=== PATIENT | female | born 1985 | race Caucasian/White ===

== ENCOUNTER → 2018-05-04 | Outpatient (CLI) | payer OTHER ==
[2018-05-04 16:01] LABS: Basophils # (A) 0.1 k/uL (0-0.2); Basophils % (A) 1 %; Eosinophils # (A) 0.2 k/uL (0-0.7); Eosinophils % (A) 3 %; HCT 39.4 % (34.0-46.0); HGB 12.6 gm/dL (11.4-16.0); Lymphocytes % (A) 31 %; MCH 31.2 pg (25.0-35.0); MCV 97.3 fL (80.0-100.0); Mean Platelet Volume 8.2; Monocytes # (A) 0.4 k/uL (0-1.0); Monocytes % (A) 6 %; Neutrophils # (A) 3.8 k/uL (1.3-7.7); Neutrophils % (A) 58 %; Platelet Count 190 k/uL (150-450); RBC 4.05 m/uL (3.80-5.40); RDW 12.1 % (11.5-15.5); WBC 6.5 k/uL (3.8-10.6)
== END | disposition home or self-care (01) ==
LOC: LABPAT 14:54
PROVIDERS: ATTEND Obstetrics & Gynecology
DX: Z01.812 Encounter for preprocedural laboratory examination (principal)
CPT/HCPCS: 85025

== ENCOUNTER 2018-05-22 07:18 | Day surgery (SDC) | payer OTHER ==
[2018-05-18 08:35] VITALS: BMI 20.7
--- NOTE | 2018-05-21 18:55 | P.HPOB ---
History of Present Illness H&P Date: 05/21/18 Chief Complaint: Family planning This is a 32-year-old female 3 para 2 who presents for laparoscopic bilateral tubal ligation via fulguration for family planning. She would like to be off of her control pills due to migraine headaches. Obstetrical history: G 3 P2. History of 1 miscarriage and 2 vaginal deliveries. Gynecologic history: No history of sexual transmitted diseases. Social history: She is . She works full-time in daycare. Review of Systems Constitutional: Denies chills, Denies fever Eyes: denies blurred vision, denies pain Ears, nose, mouth and throat: Reports headache, Denies sore throat Cardiovascular: Denies chest pain, Denies shortness of breath Respiratory: Denies cough Gastrointestinal: Denies abdominal pain, Denies diarrhea, Denies nausea, Denies vomiting Genitourinary: Reports dysmenorrhea Menstruation: Reports cycle variable Musculoskeletal: Denies myalgias Integumentary: Reports as per HPI Neurological: Reports headaches Psychiatric: Reports irritability, Denies anxiety, Denies depression Endocrine: Denies fatigue, Denies weight change Past Medical History Additional Past Medical History / Comment(s): HX MIGRAINES, KIDNEY STONES History of Any Multi-Drug Resistant Organisms: None Reported Additional Past Surgical History / Comment(s): D&C 2008, ORAL BONE GRAFT WITH SEDATION Past Anesthesia/Blood Transfusion Reactions: No Reported Reaction Past Psychological History: Anxiety Smoking Status: Current some day smoker Past Alcohol Use History: Rare Additional Past Alcohol Use History / Comment(s): SMOKED FOR 2 YEARS AND NOW SMOKES SOCIALLY. Past Drug Use History: None Reported - Past Family History Mother Family Medical History: No Reported History Medications and Allergies Home Medications Medication Instructions Recorded Confirmed Type Aspirin/Acetaminophen/Caffeine 1 each PO DIRECTED PRN 05/18/18 05/18/18 History [Excedrin Migraine Caplet] Control Pill 1 tab PO DAILY 05/18/18 History Sertraline [Zoloft] 50 mg PO DAILY 05/18/18 05/18/18 History Allergies Allergy/AdvReac Type Severity Reaction Status Date / Time amoxicillin Allergy Unknown Body Aches Verified 05/18/18 08:26 - [place] like she had the "flu" nifedipine [From Procardia] Allergy Unknown Rash/Hives Verified 05/21/18 18:54 sulfamethoxazole Allergy Unknown Rash/Hives Verified 05/18/18 08:09 [From Bactrim] trimethoprim [From Bactrim] Allergy Unknown Rash/Hives Verified 05/18/18 08:09 Exam Osteopathic Statement: *. No significant issues noted on an osteopathic structural exam other than those noted in the History and Physical/Consult. HEENT: Within normal limits Heart: Regular rate and rhythm Lungs: Clear to auscultation bilaterally Abdomen: Soft, nontender Pelvic exam: Uterus is retroverted, nontender, with no adnexal masses or tenderness noted. Extremities: Negative Homans Assessment and Plan (1) Family planning Status: Acute Code(s): Z30.09 - ENCOUNTER FOR OTH GENERAL CNSL AND ADVICE ON CONTRACEPTION SNOMED Code(s): 721455328 Plan: Proceed with laparoscopic bilateral tubal ligation via fulguration. I have discussed the risks, benefits, and alternative therapies for the above- mentioned procedure and for both sedation/anesthesia as well as necessary blood products administration, if indicated, as they pertain to this patient. The patient has indicated her understanding and acceptance of the risks and procedures discussed.
[~2018-05-22 07:18] MED LIST: DEXAMETHASONE SOD PHOSPHATE 10 MG/ML 1 ML VIAL IV ONE; LACTATED RINGERS 1,000 ML IV SCH; LIDOCAINE 1% 20 ML VIAL (10MG/ML) FOR IV START INTRADERMA PRN; MIDAZOLAM 2 MG/2 ML VIAL IV PRN; Pre Op ABX Message 1 EACH MISC MISCELLANE ONE; fentaNYL (PF) 50 MCG/ML 2 ML AMP IV PRN
[2018-05-22] MEDS: ONDANSETRON 4 MG/2 ML VIAL IVP ONE ×2 (07:58→11:12)
[2018-05-22] MEDS ORDERED: GLYCOPYRROLATE 0.2 MG/ML 2 ML VIAL ONE (09:47)
[2018-05-22] MEDS ORDERED: ROCURONIUM BROMIDE 10 MG/ML 10 ML VIAL IV ONE (09:47)
[2018-05-22] MEDS ORDERED: fentaNYL (PF) 50 MCG/ML 2 ML AMP ONE (09:47)
[2018-05-22] MEDS ORDERED: MIDAZOLAM 2 MG/2 ML VIAL ONE (09:47)
[2018-05-22] MEDS ORDERED: SUCCINYLCHOLINE CHLORIDE 100 MG/5 ML SYR IV ONE (09:47)
[2018-05-22] MEDS ORDERED: NEOSTIGMINE 1 MG/ML 10 ML VIAL ONE (09:47)
[2018-05-22] MEDS ORDERED: PROPOFOL 10 MG/ML 20 ML VIAL IV ONE (09:47)
[2018-05-22] MEDS ORDERED: LIDOCAINE 1% INJ 10MG/ML (20 ML MDV) ONE (09:47)
[2018-05-22] MEDS ORDERED: KETOROLAC 30 MG/ML 1 ML VIAL ONE (09:47)
[2018-05-22] MEDS ORDERED: BUPIVACAINE (PF) 0.25% 30 ML VIAL SQ ONE ×2 (09:49→10:22)
[2018-05-22] MEDS ORDERED: LACTATED RINGERS 1,000 ML IV ONE ×2 (10:17)
--- NOTE | 2018-05-22 10:29 | P.OP ---
Date of Procedure: 05/22/18 Preoperative Diagnosis: Family planning Postoperative Diagnosis: Same Procedure(s) Performed: Laparoscopic bilateral tubal ligation via fulguration Anesthesia: LOBO Surgeon: Krysten Mansfield Estimated Blood Loss (ml): 25 Pathology: none sent Condition: stable Disposition: same day Indications for Procedure: This is a 32-year-old female 3 para 2 who presents for laparoscopic bilateral tubal ligation via fulguration for family planning. She would like to be off of her control pills due to migraine headaches. Operative Findings: Uterus is retroverted, sounded to 7 cm. Normal ovaries and tubes are noted. Normal-appearing uterus is noted. Appendix is visualized and appears normal. Description of Procedure: The patient is taken to the operating room where she is placed in the dorsal lithotomy position. She is prepped and draped in the normal sterile fashion. Examination is performed under anesthesia. Uterus is found to be in a retroverted position. No adnexal masses were palpated. Next a bivalve speculum was placed in the patient's vagina. A single-tooth tenaculum was used to grasp the anterior lip of the cervix. The uterus was sounded to 7 cm. The kroner uterine manipulator was then inserted through the cervix and the balloon was inflated. The single-tooth tenaculum is removed speculum was removed gloves were changed and attention was turned to the abdomen. The infraumbilical fold was grasped in transverse fashion with 2 Allis clamps. A small transverse incision was made with a scalpel. A hemostat was used to carry the incision down to the underlying layer of fascia. A towel clip was placed above the umbilicus for retraction. A 11 mm disposable bladeless trocar was then inserted into the peritoneal cavity under direct visualization. Once inside, pneumoperitoneum was achieved with CO2 gas. The insert was removed and the camera was placed. Intraperitoneal placement was confirmed. No bleeding was noted. Next the patient was placed in Trendelenburg position. A small stab incision was made suprapubically and a 5 mm disposable bladeless trocar was inserted into the peritoneal cavity under direct visualization. Once inside pelvic contents were inspected. Next a bipolar Kleppinger instrument was placed through the inferior trocar and the midportion of each tube was brought away from other structures and completely fulgurated on approximate 2-3 cm segment of each tube. Excellent hemostasis was noted. A picture was taken. Pneumoperitoneum was released after the inferior trocar was removed under direct visualization. The upper trocar was then removed. The fascial incision was closed with 0 Vicryl suture in interrupted [id number] stitch. The skin incisions were then closed with 4-0 Vicryl suture in a subcuticular fashion. The incision sites are injected with quarter percent Marcaine. Approximately 7 mL were used. Next the kroner uterine manipulator was removed. Minimal bleeding was noted. All sponge and needle counts are correct. The patient is then taken to recovery room in stable condition.
[2018-05-22 10:40] VITALS: TEMP 97.6
[2018-05-22] MEDS: HYDROmorphone 1 MG/ML 1 ML SYRINGE IVP PRN ×4 (10:50→11:04)
[2018-05-22 10:52] VITALS: RESP 16
[2018-05-22] MEDS: MEPERIDINE 50 MG/ML SYRINGE IVP ONE ×2 (11:12→11:17)
[2018-05-22] MEDS ORDERED: HYDROcodone/APAP 5-325MG 1 EACH TAB PO ONE (12:03)
[2018-05-22 12:42] VITALS: BP 120/76; PULSE 89
== END 2018-05-22 13:20 | disposition home or self-care (01) ==
LOC: OR 07:18
PROVIDERS: ATTEND Obstetrics & Gynecology
DX: Z30.2 Encounter for sterilization (principal); G43.909 Migraine, unspecified, not intractable, without status migrainosus; N94.6 Dysmenorrhea, unspecified; F41.9 Anxiety disorder, unspecified; F17.200 Nicotine dependence, unspecified, uncomplicated; F39 Unspecified mood [affective] disorder; Z79.3 Long term (current) use of hormonal contraceptives; Z79.899 Other long term (current) drug therapy; Z88.0 Allergy status to penicillin; Z88.2 Allergy status to sulfonamides; Z88.8 Allergy status to other drugs, medicaments and biological substances
CPT/HCPCS: 81025; 58670; J2250; J1100; J2710; J2175; J2405; J2001; J3010; J1885; J1170; J0330; J2704

== ENCOUNTER → 2020-03-12 | Day surgery (SDC) | payer BC, OTHER ==
[2020-03-11 09:56] VITALS: BMI 22.6
--- NOTE | 2020-03-11 17:55 | P.HPOB ---
History of Present Illness H&P Date: 03/11/20 Chief Complaint: Menorrhagia with irregular cycle This is a 34 y.o. female, 3, para 2, who presents for dilatation and curettage with hysteroscopy and Novasure endometrial ablation for menorrhagia with irregular menses. She complains of menses that occur monthly and last 5-7 days, but she has at least 7 days of brownish discharge a week before her menses. She also has cramping with her menses. She would like definitive surgical treatment and she has previously had a tubal ligation. Ultrasound showed uterus measuring 7.3 x 5.4 x 4.2 cm with endometrium 4 mm. Ovaries wer normal. OB Hx: . History of 2 vaginal deliveries and 1 molar . 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 Works full-time in daycare. Review of Systems Constitutional: Denies chills, Denies fever Eyes: denies blurred vision, denies pain Ears, nose, mouth and throat: Reports headache (week before menses), Denies sore throat Cardiovascular: Denies chest pain, Denies shortness of breath Respiratory: Denies cough Gastrointestinal: Reports nausea (week before & during menses), Denies abdominal pain Genitourinary: Reports dysmenorrhea, Reports dysuria, Reports menorrhagia, Reports urgency, Reports vaginal dryness Menstruation: Reports menses 8 or > days, Reports menses variable Musculoskeletal: Reports low back pain (during menses) Integumentary: Denies pruritus, Denies rash Neurological: Denies numbness, Denies weakness Psychiatric: Reports anxiety, Reports change in libido, Reports irritability, Denies depression Endocrine: Denies fatigue, Denies weight change Past Medical History Additional Past Medical History / Comment(s): kidney stones, heavy frequent periods, frequent migraines History of Any Multi-Drug Resistant Organisms: None Reported Past Surgical History: Tubal Ligation Additional Past Surgical History / Comment(s): D&C 2009 Past Anesthesia/Blood Transfusion Reactions: No Reported Reaction Past Psychological History: Anxiety Smoking Status: Current some day smoker Past Alcohol Use History: Occasional Past Drug Use History: None Reported - Past Family History Mother Family Medical History: No Reported History Medications and Allergies Home Medications Medication Instructions Recorded Confirmed Type Citalopram Hydrobromide [CeleXA] 20 mg PO DAILY 03/11/20 03/11/20 History Dextroamphetamine/Amphetamine 20 mg PO DAILY PRN 03/11/20 03/11/20 History [Adderall] Rizatriptan Benzoate [Rizatriptan] 10 mg PO DIRECTED PRN 03/11/20 03/11/20 History Allergies Allergy/AdvReac Type Severity Reaction Status Date / Time amoxicillin Allergy Unknown Body Aches Verified 03/11/20 09:24 - [place] like she had the "flu" nifedipine [From Procardia] Allergy Unknown Rash/Hives Verified 03/11/20 09:24 sulfamethoxazole Allergy Unknown Rash/Hives Verified 03/11/20 09:24 [From Bactrim] trimethoprim [From Bactrim] Allergy Unknown Rash/Hives Verified 03/11/20 09:24 Exam Osteopathic Statement: *. No significant issues noted on an osteopathic structural exam other than those noted in the History and Physical/Consult. Intake and Output 03/11/20 03/11/20 03/11/20 06:59 14:59 22:59 Other: Weight 54.431 kg HEENT: within normal limits Heart: regular rate and rhythm Lungs: clear to auscultation bilaterally Abdomen: soft, non-tender Pelvic: uterus small, retroverted, non-tender, with no adnexal masses or tenderness Extremities: neg. Fahad's Assessment and Plan (1) Menorrhagia with irregular cycle Current Visit: No Status: Acute Code(s): N92.1 - EXCESSIVE AND FREQUENT MENSTRUATION WITH IRREGULAR CYCLE SNOMED Code(s): 736706698 Plan: Proceed with dilatation and curettage with hysteroscopy and Novasure endometrial ablation. I have discussed the risks, benefits, and alternative therapies for the above- mentioned procedure and for both sedation/anesthesia as well as necessary blood products administration, if indicated, as they pertain to this patient. The patient has indicated her understanding and acceptance of the risks and procedures discussed.
[~2020-03-12] MED LIST changes: +KETOROLAC 15 MG/ML 1 ML VIAL ONE; -LIDOCAINE 1% 20 ML VIAL (10MG/ML) FOR IV START INTRADERMA PRN; +LIDOCAINE 1% INJ 10MG/ML (20 ML MDV) ONE; -MIDAZOLAM 2 MG/2 ML VIAL IV PRN; +MIDAZOLAM 2 MG/2 ML VIAL ONE; +ONDANSETRON 4 MG/2 ML VIAL IVP ONE; +PROPOFOL 10 MG/ML 20 ML VIAL IV ONE; +SCOPOLAMINE 1.5MG/72HR PATCH TRANSDERM ONE; -fentaNYL (PF) 50 MCG/ML 2 ML AMP IV PRN; +fentaNYL (PF) 50 MCG/ML 2 ML AMP ONE
--- NOTE | 2020-03-12 08:09 | P.OP ---
Date of Procedure: 03/12/20 Preoperative Diagnosis: Menorrhagia with irregular cycle Postoperative Diagnosis: Same Procedure(s) Performed: Dilation and curettage with hysteroscopy and NovaSure endometrial ablation Anesthesia: other (Mask general) Surgeon: Krysten Mansfield Estimated Blood Loss (ml): 20 Pathology: other (Endometrial curettings) Condition: stable Disposition: same day Indications for Procedure: This is a 34 y.o. female, 3, para 2, who presents for dilatation and curettage with hysteroscopy and Novasure endometrial ablation for menorrhagia with irregular menses. She complains of menses that occur monthly and last 5-7 days, but she has at least 7 days of brownish discharge a week before her menses. She also has cramping with her menses. She would like definitive surgical treatment and she has previously had a tubal ligation. Ultrasound showed uterus measuring 7.3 x 5.4 x 4.2 cm with endometrium 4 mm. Ovaries wer normal. Operative Findings: Uterus is mid to retroverted position, sounded to 9 cm. Cervix is sounded to 4 cm. Upon hysteroscopy, a dyssynchronous endometrial pattern is noted. Both tubal ostia are visualized. A minimal to moderate amount of endometrial curettings are obtained. Description of Procedure: The patient is taken to the operating room. She is placed in the dorsal lithotomy position after general anesthesia was given. She is prepped and draped in the normal sterile fashion. Bladder is drained with a catheter and then removed. Pelvic exam is performed under anesthesia. Uterus is found to be mid to retroverted with no adnexal masses. She is placed in slight Trendelenburg position. A right angle retractor is used to visualize the cervix. The anterior lip of the cervix is grasped with a single-tooth tenaculum. Cervix is sounded to 4 cm. Uterus is sounded to 9 cm. Cervix is g ently dilated with Orozco dilators until a hysteroscope could be passed. Hysteroscopy is performed using normal saline. The above noted findings are noted. Next a polyp forceps is introduced. A moderate amount of tissue was obtained. Next medium-sized size sharp curette was placed. A minimal to moderate amount of endometrial curettings were obtained. Next NovaSure array was inserted into the endometrial cavity. Length was set at 5 cm and width was determined to be 3.8 cm. Next cavity assessment was completed and passed on the first try. Next NovaSure array was fired at 107 W for 60 seconds. Next the array was removed, inspected and then discarded. Next the hysteroscope was reinserted. Uniform charring was noted. Pictures were taken. Hysteroscope was removed. Single-tooth tenaculum was removed from the anterior lip of the cervix. A ring forcep was then applied for pressure on the cervix. Once the ring forcep was removed, no active bleeding was noted. All other instruments removed from the vagina. Sponge counts were correct. Patient is taken to recovery room in stable condition.
[2020-03-12 08:18] VITALS: TEMP 97.1
[2020-03-12] MEDS: HYDROmorphone 0.5 MG/0.5 ML SYRINGE IVP PRN ×4 (08:21→08:39)
[2020-03-12 09:24] VITALS: BP 111/54; PULSE 73; RESP 14
== END | disposition home or self-care (01) ==
LOC: OR 06:14
PROVIDERS: ATTEND Obstetrics & Gynecology
DX: N92.1 Excessive and frequent menstruation with irregular cycle (principal); Z87.442 Personal history of urinary calculi; F41.9 Anxiety disorder, unspecified; F17.200 Nicotine dependence, unspecified, uncomplicated; Z79.899 Other long term (current) drug therapy; G43.909 Migraine, unspecified, not intractable, without status migrainosus; Z88.0 Allergy status to penicillin; Z88.2 Allergy status to sulfonamides; Z88.8 Allergy status to other drugs, medicaments and biological substances
CPT/HCPCS: 81025; 88305; 58563; J2250; J1100; J2405; J2001; J3010; J1885; J2704; J1170